=== PATIENT | male | born 1940 | race Caucasian/White ===

== ENCOUNTER → 2016-10-16 | Day surgery (SDC) | payer OTHER, BC ==
[2016-09-28 11:37] VITALS: Ht 180.3 cm; Wt 88.6 kg
[~2016-10-16] VITALS: Ht 180.3 cm; Wt 88.6 kg
[~2016-10-16] MED LIST: B-COTAB18 PO; CHOL1000 PO; FLM4 PO; HYDR-3983 PO; LIDOCAINE HCL 2% 2 ML VIAL (20MG/ML) ONE; LUTE15CA PO; PROPOFOL IV EMULSION 10 MG/ML 20 ML VIAL IV ONE; VITACAP37 PO
--- NOTE | 2016-10-16 11:06 | Endo History and Physical ---
History & Physical Date of Service: Oct 16, 2016. Chief Complaint: Hx of polyps Referring Physician: Benjamin History of Present Illness 75 yo CM who presents for colonoscopy secondary to history of colon polyps. Past Surgical History Hx Cardiac Surgery: No Hx Internal Defibrillator: No Hx Pacemaker: No Hx Abdominal Surgery: No Hx of Implantable Prosthesis: No Hx Post-Op Nausea and Vomiting: No Hx Cancer Surgery: No Hx Thoracic Surgery: No Hx Orthopedic: Yes (L2-3 AND 11-12 SURGERY) Hx Urinary Tract Surgery: No Family History None Social History Smoking Status: Never Smoker Hx Substance Use: No Hx Alcohol Use: No Allergies Coded Allergies: No Known Allergies (Unverified , 10/16/16) Current Medications Reported Home Medications Medications Dose Route/Sig Max Daily Dose Days Date Category Dose Instructions E-400 (Vitamin E) 400 Unit Cap 1 Cap PO QPM 09/28/16 Reported Vitamin B Complex (B-Complex Vitamins) 1 Tab Tab 1 Tab PO QPM 09/28/16 Reported Vitamin D3 (Cholecalciferol) 1,000 Unit Tab 1 Tab PO QPM 09/28/16 Reported Lutein (Lutein-Zeaxanthin) 1 Cap Cap 1 Cap PO QPM 09/28/16 Reported [place] 7.5MG/325MG (Acetaminophen/Hydrocodone Bitart) Tab 1 Tab PO Q4-6H PRN 09/28/16 Reported PRN PAIN Tamsulosin HCl 0.4 Mg Cap 1 Cap PO HS 09/28/16 Reported Vital Signs Weight (Kilograms): 88.64 Height (Feet): 5 Height (Inches): 11 Date Time Temp Pulse Resp B/P (MAP) Pulse Ox O2 Delivery O2 Flow Rate FiO2 10/16/16 10:16 36.4 54 18 126/73 (90) 97 Room Air Physical Exam General Appearance: WD/WN, no apparent distress Respiratory/Chest: Auscultation: breath sounds normal Cardiovascular: Heart Auscultation: RRR Abdomen: Bowel Sounds: normal Inspection & Palpation: soft, non-distended, no tenderness, guarding & rebound Assessment and Plan Assessment: 75 yo CM who presents for colonoscopy secondary to history of colon polyps. Plan: Proceed with colonoscopy.
--- NOTE | 2016-10-16 11:38 | Anesthesiology Progress Note ---
Anesthesia Post Op Note Date & Time Oct 16, 2016 at 11:38 Vital Signs Pain Intensity: 0 Vital Signs Past 12 Hours Date Time Temp Pulse Resp B/P (MAP) Pulse Ox O2 Delivery O2 Flow Rate FiO2 10/16/16 10:16 36.4 54 18 126/73 (90) 97 Room Air Notes Mental Status: alert / awake / arousable, participated in evaluation Pt Amnestic to Procedure: Yes Nausea / Vomiting: adequately controlled Pain: adequately controlled Airway Patency, RR, SpO2: stable & adequate BP & HR: stable & adequate Hydration State: stable & adequate Anesthetic Complications: no major complications apparent
--- NOTE | 2016-10-16 11:49 | GI REPORT ---
Procedure Date: 10/16/2016 11:14 AM Procedure: Colonoscopy Indications: High risk colon cancer surveillance: Personal history of colonic polyps Medicines: Monitored Anesthesia Care Complications: No immediate complications. Estimated Blood Loss: Estimated blood loss: none. Procedure: Pre-Anesthesia Assessment: - Prior to the procedure, a History and Physical was performed, and patient medications and allergies were reviewed. The patient's tolerance of previous anesthesia was also reviewed. The risks and benefits of the procedure and the sedation options and risks were discussed with the patient. All questions were answered, and informed consent was obtained. Prior Anticoagulants: The patient has taken no previous anticoagulant or antiplatelet agents. ASA Grade Assessment: II - A patient with mild systemic disease. After reviewing the risks and benefits, the patient was deemed in satisfactory condition to undergo the procedure. After I obtained informed consent, the scope was passed under direct vision. Throughout the procedure, the patient's blood pressure, pulse, and oxygen saturations were monitored continuously. The Scope was introduced through the anus and advanced to the terminal ileum. The colonoscopy was performed without difficulty. The patient tolerated the procedure well. The quality of the bowel preparation was good. The terminal ileum, the appendiceal orifice and the rectum were photographed. Findings: Three sessile polyps were found in the rectum and in the ascending colon. The polyps were 5 to 7 mm in size. These polyps were removed with a hot snare. Resection and retrieval were complete. Multiple small-mouthed diverticula were found in the sigmoid colon. Non-bleeding internal hemorrhoids were found during retroflexion. The hemorrhoids were small. Impression: - Three 5 to 7 mm polyps in the rectum and in the ascending colon, removed with a hot snare. Resected and retrieved. - Diverticulosis in the sigmoid colon. - Non-bleeding internal hemorrhoids. Recommendation: - Resume previous diet. - Continue present medications. - Repeat colonoscopy for surveillance based on pathology results. - Return to primary care physician as previously scheduled. Markel Vaughn, DO 10/16/2016 11:48:46 AM This report has been signed electronically. Note Initiated On: 10/16/2016 11:14 AM I attest to the content of the Intraoperative Record and orders documented therein, exceptions below
--- NOTE | 2016-10-16 11:52 | Discharge Instructions ---
Endoscopy Patient Instructions Date / Procedure(s) Performed Oct 16, 2016. Colonoscopy Allergy Information Coded Allergies: No Known Allergies (Unverified , 10/16/16) Discharge Date / Findings Oct 16, 2016. Colon polyps Rectal polyp Diverticulosis Internal hemorrhoids Medication Instructions OK to resume all medications today as prescribed Reported Home Medications Medications Dose Route/Sig Max Daily Dose Days Date Category Dose Instructions E-400 (Vitamin E) 400 Unit Cap 1 Cap PO QPM 09/28/16 Reported Vitamin B Complex (B-Complex Vitamins) 1 Tab Tab 1 Tab PO QPM 09/28/16 Reported Vitamin D3 (Cholecalciferol) 1,000 Unit Tab 1 Tab PO QPM 09/28/16 Reported Lutein (Lutein-Zeaxanthin) 1 Cap Cap 1 Cap PO QPM 09/28/16 Reported [place] 7.5MG/325MG (Acetaminophen/Hydrocodone Bitart) Tab 1 Tab PO Q4-6H PRN 09/28/16 Reported PRN PAIN Tamsulosin HCl 0.4 Mg Cap 1 Cap PO HS 09/28/16 Reported Provider Instructions Activity Restrictions - No exercising or heavy lifting for 24 hours. - Do not drink alcohol the day of the procedure. - Do not drive a car or operate machinery until the day after the procedure. - Do not make any important decisions or sign important papers in 24 hours after the procedure. Following Day: - Return to full activity which may include returning to work/school. Diet Start your diet with liquids and light foods (jello, soup, juice, toast). Then eat your usual diet if not nauseated. Treatment For Common After Affects For mild abdominal pain, bloating, or excessive gas: - Rest - Eat lightly - Lie on right side Follow-Up Information Follow-up with Benjamin as scheduled Anesthesia Information What You Should Know You have had a procedure that required some medicine to reduce anxiety and discomfort. This treatment is called moderate sedation. After receiving the treatment, you may be sleepy, but you will be able to breathe on your own. The effects of the treatment may last for several hours. Follow these instructions along with Activity/Diet recommendations noted above: * Do NOT do anything where dizziness or clumsiness would be dangerous. * Rest quietly at home today, then you can be up and about tomorrow. * Have a responsible person stay with you the rest of today. * You may have had an I.V. today. If so, you may take the dressing off later today. Recommendations Call your doctor if: * Trouble breathing * Continuous vomiting for more than 24 hours * Temperature above 101 degrees * Severe abdominal pain or bloating * Pain not relieved by pain medicine ordered * There is increased drainage or redness from any incision * A large amount of rectal bleeding greater than 2-3 tablespoons. (If you had a polyp/s removed or have hemorrhoids, a small amount of blood - from the rectum is to be expected.) * You have any unanswered questions or concerns. IN THE EVENT OF A SERIOUS EMERGENCY, GO TO THE NEAREST EMERGENCY ROOM Your discharge instructions were prepared by provider Markel Vaughn. Patient Instructions Signature Page Robin Diaz Patient (or Guardian) Signature/Date: I have read and understand the instructions given to me by my caregivers. Caregiver/RN/Doctor Signature/Date: The above-named patient and/or guardian has received patient instructions on this date. + Original Patient Signature Page (only) stays with chart. Please make copy for patient.
[2016-10-16 12:03] VITALS: BP 104/67; PULSE 52; O2SAT 97
== END | disposition home or self-care (01) ==
LOC: C.GI 09:44
PROVIDERS: ATTEND Internal Medicine
DX: Z12.11 Encounter for screening for malignant neoplasm of colon (principal); D12.2 Benign neoplasm of ascending colon; K62.1 Rectal polyp; K57.30 Diverticulosis of large intestine without perforation or abscess without bleeding; K64.8 Other hemorrhoids; Z86.010 Personal history of colon polyps; Z79.899 Other long term (current) drug therapy

== ENCOUNTER → 2017-03-01 | Outpatient (CLI) | payer OTHER, BC ==
[~2017-03-01] MED LIST changes: -LIDOCAINE HCL 2% 2 ML VIAL (20MG/ML) ONE; -PROPOFOL IV EMULSION 10 MG/ML 20 ML VIAL IV ONE
[2017-03-01 11:40] LABS: BASO % 0.9 %; BASO ABS # 0.07 K/uL (0-0.2); COMPLETE YES; EOS % 3.8 %; HEMATOCRIT 41.5 % (42-52); IG% 0.1 %; LYMPH % 36.6 %; LYMPH ABS # 2.72 K/uL (1.2-3.4); MEAN CORPUSCULAR HEMOGLOBIN 33.2 pg (25-34); MEAN CORPUSCULAR HGB CONC 34.9 g/dl (32-36); MEAN PLATELET VOLUME 9.6 fL (7.4-10.4); MONO % 9.6 %; PLATELET COUNT 169 K/uL (130-400); RED BLOOD COUNT 4.37 M/uL (4.7-6.1); WHITE BLOOD COUNT 7.43 K/uL (4.8-10.8)
[2017-03-01 11:50] LABS: ALT/SGPT 22 U/L (12-78); AST/SGOT 14 U/L (15-37); BLOOD UREA NITROGEN 22 mg/dl (7-18); BUN/CREATININE RATIO 19.5 (10-20); CALCIUM 8.7 mg/dl (8.5-10.1); CARBON DIOXIDE 30 mmol/L (21-32); CHLORIDE 106 mmol/L (98-107); CREATININE 1.11 mg/dl (0.60-1.40); GLUCOSE 88 mg/dl (70-99); POTASSIUM 4.1 mmol/L (3.5-5.1); SODIUM 140 mmol/L (136-145)
[2017-03-01 12:01] LABS: ALB/GLOB RATIO 0.9 (0.9-2); ALKALINE PHOSPHATASE 52 U/L (45-117); CHOLESTEROL 128 mg/dl (0-200); CHOLESTEROL/HDL RATIO 3.1; HDL CHOLESTEROL 41 mg/dl; LDL CHOLESTEROL CALCULATED 70 mg/dl; THYROID STIMULATING HORMONE 0.844 uIu/ml (0.300-4.500); TRIGLYCERIDES 83 mg/dl (0-150); VERY LOW DENSITY LIPOPROT CALC 17 mg/dl
[2017-03-01 14:54] LABS: URINE APPEARANCE CLOUDY (CLEAR); URINE BILIRUBIN NEG (NEG); URINE COLOR DK YELLOW; URINE NITRITE NEG (NEG); URINE PH 8.5 (4.5-7.5); URINE SPECIFIC GRAVITY 1.024 (1.000-1.030); UROBILINOGEN NEG (NEG)
[2017-03-01 14:58] LABS: MANUAL MICROSCOPIC REQUIRED? NO; REVIEW REQ? NO
== END | disposition home or self-care (01) ==
LOC: C.LAB 10:05
PROVIDERS: ATTEND Internal Medicine Pulmonary Disease
DX: Z00.00 Encounter for general adult medical examination without abnormal findings (principal); N40.0 Benign prostatic hyperplasia without lower urinary tract symptoms; M51.36 Other intervertebral disc degeneration, lumbar region; K63.5 Polyp of colon; E55.9 Vitamin D deficiency, unspecified

== ENCOUNTER 2024-03-17 06:48 | Inpatient (IN) ==
--- NOTE | 2024-03-17 07:14 | Emergency Department Note ---
Impression & Plan LLL pneumonia, Influenza A, Cough, Weakness ED Provider Note Provider: Warner Riley MD CHIEF COMPLAINT: Cough, shortness of breath, weakness HISTORY OF PRESENT ILLNESS: Patient is a 83-year-old gentleman past medical history including scoliosis and recently evaluated in the office diagnosed bronchitis presenting here today stating since he has been ill with cough and cold symptoms. Evidently his at that time was diagnosed with influenza. She has recovered. He was not formally tested but began to be ill again about a week and a half ago. Has had continued cough (mildly productive) symptoms worsening over the last 1 to 2 days. Little more short of breath. With cough maybe very slight chest discomfort but no other "chest pain ". Reports some generalized weakness. Denies any nausea vomiting or diarrhea. Seen in the office last week by his primary doctors group and started on redness on course for presumed bronchitis. No x-ray or other outpatient testing completed thus far. Patient states this has not helped at all get worse in the last day or 2. Fever up to 100 Fahrenheit earlier this morning and did take some aspirin. Given his lack of improvement came here for evaluation today. No syncope or falls. No recent history of pneumonia. PAST MEDICAL HISTORY: As noted above MEDICATIONS: Reviewed home medications SOCIAL HISTORY: Non-smoker, PHYSICAL EXAM: GENERAL: alert and oriented in no acute distress on stretcher Head: normocephalic and atraumatic EYES: No injection, discharge or icterus. EOMI. NECK: Trachea midline. Supple. ENT: Mucous membranes pink and moist. Pharynx without erythema or exudate. LUNGS: Airway patent. No retractions. Breath sounds clear with good air entry bilaterally. HEART: Regular rate and rhythm. No chest wall tenderness ABDOMEN: Soft and non-tender, without guarding or rebound. SKIN: Acyanotic, warm, dry, without rashes EXTREMITIES: Without swelling, tenderness or deformity NEUROLOGICAL: No focal deficits moving all extremities. No aphasia. No facial droop or slurred speech. Ambulatory. EK bpm normal sinus rhythm. No PVC or PAC. No acute ST segment elevation or depression with a QTc of 406. CONTINUOUS CARDIAC MONITORING: was ordered and showed a heart rate of 70s to 80s bpm in normal sinus rhythm Patient's laboratory studies and imaging reviewed. Differential includes pneumonia, URI, infection, dehydration, metabolic abnormality, hypo/hyperglycemia, electrolyte disturbance, anemia, hypoxia, cardiac sources, neurologic, as well as other pathologies. IMPRESSION/MEDICAL DECISION MAKING: Patient well-appearing in no obvious distress. Does have a deep cough but no significant wheezing appreciable on exam. No significant swelling of the lower extremities. Not hypoxic here but does report fever at home was 100 Fahrenheit did take aspirin earlier. Do question given his ongoing illness if beyond a possible upper respiratory infection such as flu or COVID which we will test for if he is developed possible pneumonia. X-ray basic labs are completed. Denies true chest pain but an EKG and troponin are sent for completeness. Lower suspicion given his infectious complaints and congestion that this represents PE. No significant GI symptoms. No significant focal deficits and doubt CVA and he does not appear meningitic on exam. Blood work here slightly to 12.2 difficult interpret given his current use of prednisone. Very slight anemia hemoglobin 12.5 but again no reports of any bleeding issues. No significant anemia. Normal platelet count. No significant electrolyte abnormality or signs of renal dysfunction. No significant transaminitis is noted and doubt hepatitis. Troponin normal and I doubt ACS. Negative urinalysis. Chest x-ray my review and radiology questions blunting of left costophrenic angle and possible opacity here. Do question if he may have developed pneumonia here. Respiratory viral panel returns positive for influenza A. Symptoms been ongoing and he is outside the timeframe for Tamiflu. Reassessment patient complaining of some nausea. Feeling generally weak. Discussed with him findings. Given a dose of ceftriaxone azithromycin for antibiotic coverage and some Zofran and Tylenol. Patient states he feels quite weak and unwell and does not feel that he can go home. Discussed with the hospitalist for observation. DIAGNOSIS: Left lower lobe pneumonia, cough, influenza A DISPOSITION: Hospitalist will evaluate Patient was agreeable with this plan. Past Med/Surg History Problem List (Updated 03/17/24 @ 12:30 by Warner Riley M.D.) Weakness (Acute) Degenerative joint disease Atelectasis, left Asthmatic bronchitis Influenza A (Acute) LLL pneumonia (Acute) Hip pain Cough (Acute) Keratosis History of colon polyps Anemia (Acute) Colon polyps (Acute) Disc degeneration, lumbar (Acute) Diverticulosis (Acute) Enlarged prostate without lower urinary tract symptoms (luts) (Acute) Internal hemorrhoids (Acute) Nephrolithiasis (Acute) Scoliosis (Acute) Tinnitus (Acute) Tympanic membrane perforation (Acute) Vitamin D deficiency (Acute) Calcific tendonitis of left shoulder Rhinitis Left flank discomfort Vasomotor rhinitis Urinary urgency Medical History History of COVID-19 Surgical History History of esophagogastroduodenoscopy (EGD) History of arthrodesis History of colonoscopy (~10/2016) S/P diskectomy Family History Unknown Peptic ulcer Other No family history of adverse response to anesthesia Denies family history of Ovarian cancer Prostate cancer Myocardial infarction Breast cancer Colorectal cancer Social History Smoking Status: Never smoker Hx Alcohol Use: Yes Alcohol type: wine Alcohol Intake Frequency: Monthly or Less Hx Substance Use: No Preferred Language: Urdu Communication Ability: Effective Hearing Ability: Normal Director Of Corporate Communications Required: No Beliefs That Will Affect Care: None marital status: Current Living Situation: Spouse current occupational status: retired How many Children do You have: 2 Feels Safe at Home: Yes Childhood Exposure to Second-Hand Smoke: No Diet: regular caffeine: Yes Dental Care, Regularly: Yes Physical Activity Frequency: Does not Exercise Seatbelt Use: always Sunscreen Use: Yes Assistive Devices: Glasses Allergies Allergies Allergy/AdvReac Type Severity Reaction Status Date / Time Iodinated Contrast Media AdvReac Intermediate Nausea Verified 03/13/24 13:15 Home Meds Home Medications Medication Instructions Recorded Confirmed ibuprofen 400 mg tablet 400 mg PO BID PRN Pain 12/21/18 03/17/24 [id number] 120 mcg-lutein 1 tab PO QPM 05/17/21 03/17/24 150 mcg-herb 50 mg chewable tablet (Alive Men's 50 Plus Multivitamin) hydrocodone 7.5 mg-acetaminophen 1 tab PO UD PRN pain 03/17/24 03/17/24 325 mg tablet Previous Rx's Medication Instructions Recorded vibegron 75 mg tablet (Gemtesa) 75 mg PO DAILY #90 tabs 07/10/23 ipratropium bromide 21 mcg (0.03 2 spray intranasal BID PRN allergy 02/27/ %) nasal spray symptoms #30 mL prednisone 20 mg tablet 40 mg (2 x 20 mg) PO DAILY #10 tabs 03/13/24 Results & Data (ED) Vital Signs Vital Signs - 24 hr 03/17/24 06:51 03/17/24 07:18 03/17/24 07:54 Temperature 37.5 C Temperature Source Temporal Artery Scan Pulse Rate 89 84 80 Pulse Rate [Finger] Pulse Rhythm Regular Pulse Strength Normal Respiratory Rate 18 Respiratory Effort / Characteristics Non-Labored Spontaneous Respiratory Depth Normal Respiratory Pattern Regular Blood Pressure 158/80 H Blood Pressure [Left Arm] Blood Pressure Mean 106 Blood Pressure Mean [Left Arm] Blood Pressure Position Sitting Pulse Oximetry 93 90 Oxygen Delivery Method Room Air Room Air Oxygen Flow Rate Sepsis Recent Fever Within 48 Hours Yes Sepsis New/Unexplained Change in Mental Status No Sepsis Action Taken by Nursing No Action Required 03/17/24 08:00 03/17/24 09:47 Temperature Temperature Source Pulse Rate Pulse Rate [Finger] 75 82 Pulse Rhythm Pulse Strength Respiratory Rate 15 18 Respiratory Effort / Characteristics Non-Labored Spontaneous Non-Labored Spontaneous Respiratory Depth Normal Normal Respiratory Pattern Regular Blood Pressure Blood Pressure [Left Arm] 128/73 130/80 Blood Pressure Mean Blood Pressure Mean [Left Arm] 91 96 Blood Pressure Position Pulse Oximetry 93 94 Oxygen Delivery Method Nasal Cannula Oxygen Flow Rate 2 Sepsis Recent Fever Within 48 Hours Sepsis New/Unexplained Change in Mental Status Sepsis Action Taken by Nursing Laboratory Data 03/17/24 07:15 03/17/24 07:15 Lab Results 03/17/24 03/17/24 Range/Units 07:15 08:15 WBC 12.22 H (4.8-10.8) K/ul RBC 3.82 L (4.70-6.10) M/uL Hgb 12.5 L (14.0-18.0) g/dl Hct 35.3 L (42.0-52.0) % MCV 92.4 (80.0-100.0) fL MCH 32.7 (25.0-34.0) pg MCHC 35.4 (32.0-36.0) g/dL RDW Std Deviation 43.8 (36.4-46.3) fL RDW Coeff of [place] 13.1 (11.5-14.5) % Plt Count 184 (130-400) K/uL MPV 9.4 (9.4-12.4) fL Immature Gran % (Auto) 0.4 % Neut % (Auto) 70.1 % Lymph % (Auto) 20.9 % [place] % (Auto) 8.3 % Eos % (Auto) 0.1 % Baso % (Auto) 0.2 % Neut # (Auto) 8.57 H (1.40-6.50) K/uL Lymph # (Auto) 2.56 (1.20-3.40) K/uL [place] # (Auto) 1.01 H (0.11-0.59) K/uL Eos # (Auto) 0.01 (0.00-0.50) K/uL Baso # (Auto) 0.02 (0.00-0.20) K/uL Immature Gran # (Auto) 0.05 (0.01-0.20) K/uL PT 11.3 (9.0-12.0) Seconds INR 1.0 (0.9-1.1) Sodium 136 (136-145) mmol/L Potassium 3.6 (3.5-5.1) mmol/L Chloride 102 (98-107) mmol/L Carbon Dioxide 28 (21-32) mmol/L Anion Gap 6 (3-11) BUN 21 (6-23) mg/dl Creatinine 0.91 (0.6-1.4) mg/dl Est Cr Clr Drug Dosing Not Reportable eGFR 84.15 BUN/Creatinine Ratio 23.1 H (10-20) Glucose 100 H (70-99(Fasting)) mg/dl Calcium 8.6 (8.6-10.3) mg/dl Magnesium 1.7 (1.7-2.4) mg/dl Total Bilirubin 0.8 (0.2-1.0) mg/dl AST 28 (13-39) U/L ALT 58 H (7-52) U/L Alkaline Phosphatase 34 (34-104) U/L Troponin I High Sens 3.8 (0-20) pg/ml Total Protein 6.4 (6.0-8.3) gm/dl Albumin 3.7 (3.4-5.0) gm/dl Globulin 2.7 (2.5-4.0) gm/dl Albumin/Globulin Ratio 1.4 (0.9-2) Urine Color Yellow Urine Appearance Clear (Clear) Urine pH 6.0 (4.5-7.5) Ur Specific [place] 1.011 (1.000-1.030) Urine Protein Negative (Negative) Urine Glucose (UA) Negative (Negative) Urine Ketones Negative (Negative) Urine Blood Negative (Negative) Urine Nitrite Negative (Negative) Urine Bilirubin Negative (Negative) Urine Urobilinogen Negative (Negative) Ur Leukocyte Esterase Negative (Negative) Adenovirus (PCR) Not Detected (NotDetected) B. pertussis DNA (PCR) Not Detected (NotDetected) B.parapertussis DNA PCR Not Detected (NotDetected) C. pneumoniae DNA (PCR) Not Detected (NotDetected) Coronavirus OC43 (PCR) Not Detected (NotDetected) Coronavirus HKU1 (PCR) Not Detected (NotDetected) Coronavirus 229E (PCR) Not Detected (NotDetected) SARS-CoV-2 (PCR) Not Detected (NotDetected) Coronavirus NL63 (PCR) Not Detected (NotDetected) Human Metapneumovir PCR Not Detected (NotDetected) Influenza A (H3) PCR DETECTED A (NotDetected) Influenza Type B (PCR) Not Detected (NotDetected) M. pneumoniae (PCR) Not Detected (NotDetected) Parainfluenza 1 (PCR) Not Detected (NotDetected) Parainfluenza 2 (PCR) Not Detected (NotDetected) Parainfluenza 3 (PCR) Not Detected (NotDetected) Parainfluenza 4 (PCR) Not Detected (NotDetected) RSV (PCR) Not Detected (NotDetected) Entero/Rhino (PCR) Not Detected (NotDetected) Administered Medications Albuterol (Albut/Ipratrop 3mg/0.5mg Neb 3 Ml Vial) 3 ml NEB QIDR GALE; Protocol Stop: 04/16/24 11:20 Last Admin: 03/17/24 11:46 Dose: 3 ml Documented By: ENIO Levofloxacin/Dextrose (Levaquin/D5w) 750 mg in 150 mls @ 100 mls/hr IV Q24H [facility]; Protocol Stop: 03/22/24 11:59 Last Admin: 03/17/24 12:11 Dose: 100 mls/hr Documented By: MALDONADO Discontinued Medications Acetaminophen (Acetaminophen 500 Mg Tab) 1,000 mg PO NOW STA Stop: 03/17/24 09:24 Last Admin: 03/17/24 09:40 Dose: 1,000 mg Documented By: MALDONADO Azithromycin (Azithromycin 250 Mg Tab) 500 mg PO NOW ONE Stop: 03/17/24 09:21 Last Admin: 03/17/24 09:40 Dose: 500 mg Documented By: MALDONADO Ceftriaxone Sodium (Rocephin) 2,000 mg in 50 mls @ 100 mls/hr IV NOW STA Stop: 03/17/24 09:49 Last Infusion: 03/17/24 10:13 Dose: Infused Documented By: Admin: 03/17/24 09:40 Dose: 100 mls/hr Documented By: MALDONADO Ondansetron HCl (Ondansetron Inj 2 Mg/Ml 2 Ml Vial) 4 mg IV NOW STA Stop: 03/17/24 09:24 Last Admin: 03/17/24 09:40 Dose: 4 mg Documented By: MALDONADO Imaging Data Radiologist's Impression: Chest X-Ray 03/17/24 07:03 EXAM: XR chest 1V portable CLINICAL HISTORY: DYSPNEA. TECHNIQUE: An X-ray image of the chest is obtained in AP projection. COMPARISON: 03/13/2024.. FINDINGS: Pulmonary Parenchyma: Thick atelectatic bands traversing the left lower zone. Small area of airspace shadowing in the left lower zone obscuring the CP angle suggestive of lung parenchymal inflammation with small effusion. Heart and Mediastinum: Heart size is enlarged.. No mediastinal widening or masses. No hilar or mediastinal lymphadenopathy. Bony Thorax: Bony thorax appears intact without fractures or deformities. Soft Tissues: Soft tissues overlying the chest wall are unremarkable. IMPRESSION: 1. Small area of airspace opacification left the lower zone obscuring the CP angle. Small effusion. Suggest clinical and lab correlation. 2. Atelectatic band left lower zone. 3. Comparing the previous x-ray dated 03/13/2024 there is interval progression in the context of left lower zone small area of airspace shadowing, blunting of CP angle and atelectatic band. Electronically signed by Terrie Cantu 03-17-2024 08:45 AM Discharge Plan Visit Data Chief Complaint: Cough Stated Complaint: WORSENING BRONCHIITIS ED Provider: Warner Riley Discharge Problem: LLL pneumonia, Influenza A, Cough, Weakness Patient Disposition: Being Evaluated by Hospitalist Discharge Instructions Interventions: ED Discharge Assessment Last Done: 03/17/24 11:16 Discharge Problem: LLL pneumonia Qualifiers: Pneumonia type: due to unspecified organism Qualified Code(s): J18.9 - Pneumonia, unspecified organism
[2024-03-17 07:34] LABS: Basophils # (auto) 0.02 K/uL (0.00-0.20); Basophils % (auto) 0.2 %; Eosinophils # (auto) 0.01 K/uL (0.00-0.50); Eosinophils % (auto) 0.1 %; Hematocrit (blood only) 35.3 % (42.0-52.0); Hemoglobin 12.5 g/dl (14.0-18.0); Immature Granulocytes # (auto) 0.05 K/uL (0.01-0.20); Immature Granulocytes % (auto) 0.4 %; Lymphocytes # (auto) 2.56 K/uL (1.20-3.40); Lymphocytes % (auto) 20.9 %; Mean Corpuscular Hemoglobin 32.7 pg (25.0-34.0); Mean Corpuscular Hgb Conc 35.4 g/dL (32.0-36.0); Mean Corpuscular Volume 92.4 fL (80.0-100.0); Mean Platelet Volume 9.4 fL (9.4-12.4); Monocytes # (auto) 1.01 K/uL (0.11-0.59); Monocytes % (auto) 8.3 %; Neutrophils # (auto) 8.57 K/uL (1.40-6.50); Neutrophils % (auto) 70.1 %; Platelet Count 184 K/uL (130-400); RDW Coefficient of Variation 13.1 % (11.5-14.5); RDW Standard Deviation 43.8 fL (36.4-46.3); Red Blood Count 3.82 M/uL (4.70-6.10); White Blood Count 12.22 K/ul (4.8-10.8)
[2024-03-17 07:47] LABS: Alanine Aminotransferase 58 U/L (7-52); Albumin Globulin Ratio 1.4 (0.9-2); Albumin Level 3.7 gm/dl (3.4-5.0); Alkaline Phosphatase 34 U/L (34-104); Anion Gap 6 (3-11); Aspartate Aminotransferase 28 U/L (13-39); BUN Creatinine Ratio 23.1 (10-20); Bilirubin,Total 0.8 mg/dl (0.2-1.0); Blood Urea Nitrogen 21 mg/dl (6-23); Calcium 8.6 mg/dl (8.6-10.3); Carbon Dioxide 28 mmol/L (21-32); Chloride 102 mmol/L (98-107); Globulin 2.7 gm/dl (2.5-4.0); Glucose 100 mg/dl (70-99(Fasting)); Magnesium 1.7 mg/dl (1.7-2.4); Potassium 3.6 mmol/L (3.5-5.1); Sodium 136 mmol/L (136-145); Total Protein 6.4 gm/dl (6.0-8.3)
[2024-03-17 07:54] LABS: Troponin I High Sensitivity 3.8 pg/ml (0-20)
[2024-03-17 07:55] LABS: Prothrombin Time 11.3 Seconds (9.0-12.0)
[2024-03-17 08:37] LABS: Appearance Urine Clear (Clear); Bilirubin Urine Negative (Negative); Blood Urine Negative (Negative); Color Urine Yellow; Glucose Urine UA Negative (Negative); Ketones Urine Negative (Negative); Leukocyte Esterase Urine Negative (Negative); Nitrite Urine Negative (Negative); Protein Urine Negative (Negative); Specific Gravity Urine 1.011 (1.000-1.030); Urobilinogen Urine Negative (Negative)
--- NOTE | 2024-03-17 08:45 | XRay Report ---
EXAM: XR chest 1V portable CLINICAL HISTORY: DYSPNEA. TECHNIQUE: An X-ray image of the chest is obtained in AP projection. COMPARISON: 03/13/2024.. FINDINGS: Pulmonary Parenchyma: Thick atelectatic bands traversing the left lower zone. Small area of airspace shadowing in the left lower zone obscuring the CP angle suggestive of lung parenchymal inflammation with small effusion. Heart and Mediastinum: Heart size is enlarged.. No mediastinal widening or masses. No hilar or mediastinal lymphadenopathy. Bony Thorax: Bony thorax appears intact without fractures or deformities. Soft Tissues: Soft tissues overlying the chest wall are unremarkable. IMPRESSION: 1. Small area of airspace opacification left the lower zone obscuring the CP angle. Small effusion. Suggest clinical and lab correlation. 2. Atelectatic band left lower zone. 3. Comparing the previous x-ray dated 03/13/2024 there is interval progression in the context of left lower zone small area of airspace shadowing, blunting of CP angle and atelectatic band. Electronically signed by Terrie Cantu 03-17-2024 08:45 AM
[2024-03-17 09:12] LABS: Adenovirus PCR Not Detected (NotDetected); Bordetella parapertussis PCR Not Detected (NotDetected); Bordetella pertussis PCR Not Detected (NotDetected); Chlamydia pneumoniae PCR Not Detected (NotDetected); Coronavirus 229E PCR Not Detected (NotDetected); Coronavirus CoV-2 (COVID19)PCR Not Detected (NotDetected); Coronavirus HKU1 PCR Not Detected (NotDetected); Coronavirus NL63 PCR Not Detected (NotDetected); Coronavirus OC43PCR Not Detected (NotDetected); Human Metapneumovirus PCR Not Detected (NotDetected); Influenza A (H3) PCR DETECTED (NotDetected); Influenza B PCR Not Detected (NotDetected); Mycoplasma pneumoniae PCR Not Detected (NotDetected); Parainfluenza Virus 1 PCR Not Detected (NotDetected); Parainfluenza Virus 2 PCR Not Detected (NotDetected); Parainfluenza Virus 3 PCR Not Detected (NotDetected); Parainfluenza Virus 4 PCR Not Detected (NotDetected); Respiratory Syncytial VirusPCR Not Detected (NotDetected); Rhinovirus/Enterovirus PCR Not Detected (NotDetected)
[2024-03-17] MEDS: cefTRIAXone SODIUM 2,000 MG/50 ML BAG IV STA (09:40)
[2024-03-17] MEDS: ONDANSETRON INJ 2 MG/ML 2 ML VIAL IV STA (09:40)
[2024-03-17] MEDS: AZITHROMYCIN 250 MG TAB PO ONE (09:40)
[2024-03-17] MEDS: ACETAMINOPHEN 500 MG TAB PO STA (09:40)
--- NOTE | 2024-03-17 10:12 | History & Physical Report ---
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 Levaquin, day 1. Parenteral steroid therapy. Scheduled nebulizers. (2) Influenza A: Plan: Supportive care. IV fluids (3) Atelectasis, left: Plan: Incentive spirometry ordered (4) Degenerative joint disease: Plan: Symptomatic care. Pain management Plan Hopeful discharge to home within the next 2 or 3 days History of Present Illness Chief Complaint: Productive cough, wheezing, shortness of breath, weakness Primary Care Provider: Jay Downs DO 83-year-old white male with a productive cough for the past several days along with generalized weakness. He states he took some prednisone as an outpatient recently but apparently no oral antibiotic. He appears to have asthmatic bronchitis and tests positive for influenza A. Chest x-ray reveals left lower lobe atelectasis. He denies hemoptysis. Currently afebrile. He is admitted for further evaluation and treatment Allergies Allergy/AdvReac Type Severity Reaction Status Date / Time Iodinated Contrast Media AdvReac Intermediate Nausea Verified 03/13/24 13:15 Home Medications Medication Instructions Recorded Confirmed Type ibuprofen 400 mg tablet 400 mg PO BID PRN Pain 12/21/18 03/17/24 History [id number] 120 mcg-lutein 1 tab PO QPM 05/17/21 03/17/24 History 150 mcg-herb 50 mg chewable tablet (Alive Men's 50 Plus Multivitamin) vibegron 75 mg tablet (Gemtesa) 75 mg PO DAILY #90 tabs 07/10/23 03/17/24 Rx ipratropium bromide 21 mcg (0.03 2 spray intranasal BID PRN allergy 02/28/24 03/17/24 Rx %) nasal spray symptoms #30 mL prednisone 20 mg tablet 40 mg (2 x 20 mg) PO DAILY #10 tabs 03/13/24 03/17/24 Rx hydrocodone 7.5 mg-acetaminophen 1 tab PO UD PRN pain 03/17/24 03/17/24 History 325 mg tablet Past Med/Surg History Problem List (Updated 03/17/24 @ 10:14 by Luis Armando Mohan MD) Degenerative joint disease Atelectasis, left Asthmatic bronchitis Influenza A (Acute) LLL pneumonia (Acute) Hip pain Cough Keratosis History of colon polyps Anemia (Acute) Colon polyps (Acute) Disc degeneration, lumbar (Acute) Diverticulosis (Acute) Enlarged prostate without lower urinary tract symptoms (luts) (Acute) Internal hemorrhoids (Acute) Nephrolithiasis (Acute) Scoliosis (Acute) Tinnitus (Acute) Tympanic membrane perforation (Acute) Vitamin D deficiency (Acute) Calcific tendonitis of left shoulder Rhinitis Left flank discomfort Vasomotor rhinitis Urinary urgency Medical History History of COVID-19 Surgical History History of esophagogastroduodenoscopy (EGD) History of arthrodesis History of colonoscopy (~10/2016) S/P diskectomy Family History Unknown Peptic ulcer Other No family history of adverse response to anesthesia Denies family history of Ovarian cancer Prostate cancer Myocardial infarction Breast cancer Colorectal cancer Social History Smoking Status: Never smoker Hx Alcohol Use: Yes Alcohol type: wine Alcohol Intake Frequency: Monthly or Less Hx Substance Use: No Preferred Language: Hungarian Communication Ability: Effective Hearing Ability: Normal Brand Planner Required: No Beliefs That Will Affect Care: None marital status: Current Living Situation: Spouse current occupational status: retired How many Children do You have: 2 Feels Safe at Home: Yes Childhood Exposure to Second-Hand Smoke: No Diet: regular caffeine: Yes Dental Care, Regularly: Yes Physical Activity Frequency: Does not Exercise Seatbelt Use: always Sunscreen Use: Yes Assistive Devices: Glasses Review of Systems 2 Review of Systems: Constitutionalno fever or chills ENTno blurred vision, no double vision, no epistaxis, no sore throat Respiratoryproductive cough. Discolored sputum. No hemoptysis. Dyspnea on exertion. Wheezing. Cardiacno palpitations, no chest pain, no syncope Mike nausea, vomiting, diarrhea, melena, hematochezia GUno urinary retention, no urinary incontinence, no dysuria, no hematuria Musculoskeletalno joint pain, no muscle tenderness. Generalized weakness Skinno bruising, no rashes, no pruritus Neurono isolated weakness, no paresthesia. Generalized weakness Psychno depression, no anxiety Physical Exam 2 Physical Exam: General-alert and oriented x3, no fever, no chills HEENT-head atraumatic and normocephalic, pupils equal and reactive to light, extraocular muscles intact Neck-no lymphadenopathy or thyromegaly, trachea midline Chest-midline and bilateral rhonchi. [place] expiratory wheezing. No dullness to percussion. No inspiratory rales Cardiac-regular rate and rhythm, normal S1 and S2 Abdomen-normal bowel sounds, no hepatosplenomegaly Extremities-no cyanosis, clubbing. 1+ pitting edema bilateral lower extremities below the knees Neuro-cranial nerves II through XII intact, motor and sensory function within normal limits, strength symmetrical with generalized weakness, no focal deficits Psych-normal affect, normal mood Results & Data Results & Data Vital Signs (Past 12 Hours) Vital Signs Temp Pulse Pulse Resp BP BP Pulse Ox 03/17/24 09:47 82 18 130/80 94 03/17/24 08:00 75 15 128/73 93 03/17/24 07:54 80 03/17/24 07:18 84 90 03/17/24 06:51 37.5 C 89 18 158/80 H 93 O2 Del Method O2 Flow Rate 03/17/24 09:47 Nasal Cannula 2 03/17/24 08:00 03/17/24 07:54 03/17/24 07:18 Room Air 03/17/24 06:51 Room Air Laboratory Results 03/17/24 07:15 03/17/24 07:15 Code Status & VTE Plan Code Status Full code PG Care Time/CCT Total # of Minutes Spent Total Time Spent with Patient: Total time spent is greater than 50% in coordination of care (as documented) at patient's floor/unit and/or counseling patient: Coding Level of Care Code 61007 INT INP/OBS CARE 375MIN Diagnoses Asthmatic bronchitis J45.909 Influenza A J10.1 Atelectasis, left J98.11 Degenerative joint disease M19.90
[2024-03-17] MEDS ORDERED: ONDANSETRON INJ 2 MG/ML 2 ML VIAL IV PRN (11:21)
[2024-03-17] MEDS ORDERED: methylPREDNISolone 10 mg/mL (For Ped Dose < 7mg) IV SCH (11:21)
[2024-03-17] MEDS ORDERED: HYDROCODONE/ACETAMINOPHEN 7.5/325MG TAB PO PRN (11:21)
[2024-03-17] MEDS ORDERED: ACETAMINOPHEN 325 MG TAB PO PRN (11:21)
[2024-03-17] MEDS: ALBUT/IPRATROP 3MG/0.5MG NEB 3 ML VIAL NEB SCH (11:46)
[2024-03-17] MEDS: levoFLOXacin/D5W 750 MG/150 ML BAG IV SCH (12:11)
[2024-03-17] MEDS: methylPREDNISolone 40 MG in SYRINGE 0 ML IV SCH (13:39)
[2024-03-17] MEDS: OSELTAMIVIR PHOSPHATE 75 MG CAP PO SCH (21:17)
[2024-03-17] MEDS: CEROVITE ADV FORMULA TAB PO SCH (21:17)
[2024-03-17] MEDS: HEPARIN SOD 5,000 UNIT/0.5 ML VIAL SQ SCH (21:17)
[2024-03-18] MEDS: MELATONIN 3 MG TAB PO PRN (02:02)
[2024-03-18 04:06] LABS: Hematocrit (blood only) 33.2 % (42.0-52.0); Hemoglobin 11.6 g/dl (14.0-18.0); Immature Granulocytes # (auto) 0.03 K/uL (0.01-0.20); Immature Granulocytes % (auto) 0.3 %; Lymphocytes # (auto) 1.02 K/uL (1.20-3.40); Mean Corpuscular Hemoglobin 32.4 pg (25.0-34.0); Mean Corpuscular Hgb Conc 34.9 g/dL (32.0-36.0); Mean Corpuscular Volume 92.7 fL (80.0-100.0); Mean Platelet Volume 9.3 fL (9.4-12.4); Monocytes # (auto) 0.16 K/uL (0.11-0.59); Monocytes % (auto) 1.7 %; Neutrophils # (auto) 8.06 K/uL (1.40-6.50); Platelet Count 183 K/uL (130-400); RDW Coefficient of Variation 13.2 % (11.5-14.5); Red Blood Count 3.58 M/uL (4.70-6.10); White Blood Count 9.27 K/ul (4.8-10.8)
[2024-03-18 04:25] LABS: BUN Creatinine Ratio 20.7 (10-20); Calcium 8.4 mg/dl (8.6-10.3); Creatinine Clr Calc Pharmacy 72.7 ml/min; Potassium 4.3 mmol/L (3.5-5.1)
--- NOTE | 2024-03-18 06:40 | Electrocardiogram Report ---
Test Reason : Blood Pressure : */* mmHG Vent. Rate : 81 BPM Atrial Rate : 81 BPM P-R Int : 184 ms QRS Dur : 86 ms QT Int : 350 ms P-R-T Axes : 36 -27 42 degrees QTcB Int : 406 ms Normal sinus rhythm Normal ECG When compared with ECG of 08-Feb-2024 03:31, No significant change was found Confirmed by Chace Mclain ([id number]) on 03/18/2024 6:40:25 AM Referred By: REFERRED SELF Confirmed By: Chace Mclain
[2024-03-18] MEDS: VIBEGRON 75 MG TAB PO SCH (09:03)
--- NOTE | 2024-03-18 15:32 | Hospitalist Progress Note ---
Date of Service March 18, 2024 Assessment & Plan (1) Asthmatic bronchitis: Plan: Sputum growing Staph aureus. Sensitivities pending. Levaquin, day 2. Wheezing has markedly improved with parenteral steroid therapy. Continue scheduled nebulizer treatments. (2) Influenza A: Plan: Supportive care. Tamiflu, day 2 (3) Atelectasis, left: Plan: Continue incentive spirometry (4) Degenerative joint disease: Plan: Symptomatic care. Pain management Plan Hopeful discharge to home within the next 1 to 2 days Admission and Anticipated Discharge Date Admission Date: March 17, 2024 Subjective Alert and oriented. Feeling better. Staph RES isolated in the sputum. Sensitivities pending. Continue Levaquin for now, day 2. He is also on Tamiflu, day 2. Wheezing has markedly improved with parenteral steroid therapy. OT and PT assessments have been requested. He is on 1 L oxygen with 96% oxygen saturation at this time. Review of Systems 2 Review of Systems: Constitutionalno fever or chills ENTno blurred vision, no double vision, no epistaxis, no sore throat Respiratoryproductive cough. Discolored sputum. No hemoptysis. Dyspnea on exertion. Wheezing. Cardiacno palpitations, no chest pain, no syncope Mike nausea, vomiting, diarrhea, melena, hematochezia GUno urinary retention, no urinary incontinence, no dysuria, no hematuria Musculoskeletalno joint pain, no muscle tenderness. Generalized weakness Skinno bruising, no rashes, no pruritus Neurono isolated weakness, no paresthesia. Generalized weakness Psychno depression, no anxiety Physical Exam 2 Physical Exam: General-alert and oriented x3, no fever, no chills HEENT-head atraumatic and normocephalic, pupils equal and reactive to light, extraocular muscles intact Neck-no lymphadenopathy or thyromegaly, trachea midline Chest-midline and bilateral rhonchi. [place] expiratory wheezing has nearly resolved. No dullness to percussion. No inspiratory rales Cardiac-regular rate and rhythm, normal S1 and S2 Abdomen-normal bowel sounds, no hepatosplenomegaly Extremities-no cyanosis, clubbing. 1+ pitting edema bilateral lower extremities below the knees Neuro-cranial nerves II through XII intact, motor and sensory function within normal limits, strength symmetrical with generalized weakness, no focal deficits Psych-normal affect, normal mood Results & Data Results & Data Vital Signs (Past 12 Hours) Vital Signs Temp Pulse Pulse Resp BP Pulse Ox O2 Del Method 03/18/24 15:16 36.8 C 108 H 16 122/65 93 Nasal Cannula 03/18/24 12:00 91 H 18 120/69 98 Nebulizer 03/18/24 10:00 72 18 118/72 96 Nasal Cannula 03/18/24 07:51 70 18 95 Nasal Cannula 03/18/24 07:30 62 03/18/24 07:00 59 L 16 120/72 94 Nasal Cannula 03/18/24 06:32 62 21 120/64 94 Nasal Cannula 03/18/24 05:40 64 18 165/84 H 96 Nasal Cannula O2 Flow Rate 03/18/24 15:16 1 03/18/24 12:00 03/18/24 10:00 1 03/18/24 07:51 2 03/18/24 07:30 03/18/24 07:00 2 03/18/24 06:32 2 03/18/24 05:40 2 Laboratory Results 03/18/24 03:51 03/18/24 03:51 PG Care Time/CCT Total # of Minutes Spent Total Time Spent with Patient: Total time spent is greater than 50% in coordination of care (as documented) at patient's floor/unit and/or counseling patient: Coding Level of Care Code 18399 SUB INP/OBS CARE 2/35MIN Diagnoses Asthmatic bronchitis J45.909 Influenza A J10.1 Atelectasis, left J98.11 Degenerative joint disease M19.90
[2024-03-19 05:48] LABS: Basophils # (auto) 0.01 K/uL (0.00-0.20); Basophils % (auto) 0.1 %; Hematocrit (blood only) 32.7 % (42.0-52.0); Hemoglobin 11.3 g/dl (14.0-18.0); Immature Granulocytes # (auto) 0.07 K/uL (0.01-0.20); Immature Granulocytes % (auto) 0.5 %; Lymphocytes # (auto) 1.25 K/uL (1.20-3.40); Lymphocytes % (auto) 8.5 %; Mean Corpuscular Hgb Conc 34.6 g/dL (32.0-36.0); Mean Corpuscular Volume 92.6 fL (80.0-100.0); Mean Platelet Volume 9.4 fL (9.4-12.4); Monocytes # (auto) 0.45 K/uL (0.11-0.59); Neutrophils # (auto) 13.01 K/uL (1.40-6.50); Neutrophils % (auto) 87.9 %; Platelet Count 215 K/uL (130-400); RDW Coefficient of Variation 13.2 % (11.5-14.5); RDW Standard Deviation 44.7 fL (36.4-46.3); Red Blood Count 3.53 M/uL (4.70-6.10); White Blood Count 14.79 K/ul (4.8-10.8)
[2024-03-19 06:03] LABS: BUN Creatinine Ratio 26.5 (10-20); Calcium 8.8 mg/dl (8.6-10.3); Creatinine Clr Calc Pharmacy 64.5 ml/min; Potassium 4.4 mmol/L (3.5-5.1)
[2024-03-19 07:47] VITALS: TEMP 97.9
[2024-03-19] MEDS: ceFAZolin 2000MG 2,000 MG/15 ML SYR IV SCH (10:24)
--- NOTE | 2024-03-19 11:50 | Discharge Summary ---
Discharge Summary Date of Service March 19, 2024 Principal Dx & Hospital Course #1 = Principal Diagnosis (1) Asthmatic bronchitis: Sputum growing Staph aureus. MSSA. Treated while hospitalized with intravenous Levaquin. He will be discharged on oral cephalexin for 5 more days. Wheezing has markedly improved with parenteral steroid therapy. He will be discharged on an oral prednisone tapering dose. He was treated while hospitalized with scheduled nebulizer treatments. (2) Influenza A: Supportive care. Treated while hospitalized with Tamiflu (3) Atelectasis, left: Resolved with incentive spirometry (4) Degenerative joint disease: Symptomatic care. Pain management Plan Home today, March 19 Admission HPI Per Admitting Provider 83-year-old white male with a productive cough for the past several days along with generalized weakness. He states he took some prednisone as an outpatient recently but apparently no oral antibiotic. He appears to have asthmatic bronchitis and tests positive for influenza A. Chest x-ray reveals left lower lobe atelectasis. He denies hemoptysis. Currently afebrile. He is admitted for further evaluation and treatment Discharge Exam General-alert and oriented x3, no fever, no chills HEENT-head atraumatic and normocephalic, pupils equal and reactive to light, extraocular muscles intact Neck-no lymphadenopathy or thyromegaly, trachea midline Chest-midline and bilateral rhonchi. [place] expiratory wheezing has nearly resolved. No dullness to percussion. No inspiratory rales Cardiac-regular rate and rhythm, normal S1 and S2 Abdomen-normal bowel sounds, no hepatosplenomegaly Extremities-no cyanosis, clubbing. 1+ pitting edema bilateral lower extremities below the knees Neuro-cranial nerves II through XII intact, motor and sensory function within normal limits, strength symmetrical with generalized weakness, no focal deficits Psych-normal affect, normal mood Discharge Plan Discharge Items Patient Disposition: Home - Self-Care Reason For Visit: ASTHMATIC BRONCHITIS, INFLUENZA Discharge Diagnosis: Asthmatic bronchitis, influenza A, transient hypoxia Activity: Resume your previous activity Non-emergency contact: Primary Care Provider Call non-emergency contact if: your symptoms worsen Follow-up/Referrals: Jay Downs DO [Primary Care Provider] - 03/26/24 9:20 am Diet: Regular Addtl Attending Provider Instructions: Take cephalexin 500 mg 3 times a day for 5 more days. Take prednisone in a tapering dose fashion as directed until gone. Prescriptions have been sent to [facility] on [facility]. Follow-up with your primary care provider as soon as possible Pending Studies at Discharge: No Stand-Alone Forms: My [facility], Smoking Cessation Medications and DC Order Prescriptions: New cephalexin 500 mg capsule 500 mg PO TID Qty: 15 0RF prednisone 10 mg tablet See Rx Instructions .ROUTE .COMPLEX Qty: 12 0RF Rx Instructions: 10 mg orally 3 times a day for 2 days, then 10 mg twice a day for 2 days, t hen 10 mg once a day for 2 days, then stop Continued ibuprofen 400 mg tablet 400 mg PO BID PRN (Reason: Pain) Rx Instructions: otc unable to verify Alive Men's 50 Plus Multivit 120 mcg-150 mcg -50 mg tablet,chewable 1 tab PO QPM Rx Instructions: otc unable to verify ipratropium bromide 21 mcg (0.03 %) spray,non-aerosol 2 spray intranasal BID PRN (Reason: allergy symptoms) Qty: 30 2RF Rx Instructions: administer into each nostril Gemtesa 75 mg tablet 75 mg PO DAILY Qty: 90 3RF hydrocodone-acetaminophen 7.5-325 mg tablet 1 tab PO UD PRN (Reason: pain) Rx Instructions: 1 tab po q8h prn. No fill history available Discontinued prednisone 20 mg tablet 40 mg PO DAILY Qty: 10 0RF Discharge Orders: Discharge Order (Routine); Ordered 03/19/24 Ordered By: Luis Armando Mohan Admission Data Admit Date/Time: 03/17/24 10:01 Attending Provider: Luis Armando Mohan Admit Provider: Luis Armando Mohan Primary Care Provider: Jay Downs Other Providers: Luis Armando Mohan Hospital Stay Data Consultations 03/17/24 09:37 ED Decision to Admit Stat Pending Results Patient Have Any Pending Studies at Discharge: No Discharge Instructions Given to Patient (Per Discharging Provider) Take cephalexin 500 mg 3 times a day for 5 more days. Take prednisone in a tapering dose fashion as directed until gone. Prescriptions have been sent to [facility] on [facility]. Follow-up with your primary care provider as soon as possible Total Time Total Time Spent Total Time Spent (In Minutes): 45 minutes Coding Level of Care Code 99545 INP/OBS DISCH >30 MIN Diagnoses Asthmatic bronchitis J45.909 Influenza A J10.1 Atelectasis, left J98.11 Degenerative joint disease M19.90
[2024-03-19 11:53] VITALS: BP 131/73; PULSE 95
[2024-03-19 14:14] VITALS: RESP 16; O2SAT 93
== END 2024-03-19 15:08 | disposition home or self-care (01) | DRG 202 ==
LOC: ED 06:48 → EDINP 10:01 → 2N 03-18 11:16